=== PATIENT | female | born 1990 | race African-American/Black ===

== ENCOUNTER 2016-11-29 12:30 | Inpatient (IN) | payer OTHER ==
[2016-11-29] MEDS ORDERED: BUTORPHANOL TARTRATE 1 MG/ML VIAL IVPB ONE (15:47)
[2016-11-29] MEDS ORDERED: DINOPROSTONE 10 MG VAGINAL SUPPOSITORY VG ONE (15:51)
[2016-11-29] MEDS ORDERED: SODIUM PHOSPHATE/NA BIPHOS 133 ML ENEMA PR ONE (15:51)
[2016-11-29] MEDS ORDERED: DEXTROSE 5%-LACTATED RINGERS 1,000 ML IV SCH (16:00)
[2016-11-29 16:01] VITALS: BMI 24.0
--- NOTE | 2016-11-29 16:05 | HP ---
Past Medical History - Primary Care Physician PCP:: Suad Lopez - Admission Chief Complaint: 25 ys 40 weeks by sono & 40.2 weeks by dates is admitted due to SROM since 3.30pm 11/29/16. History of Present Illness: pnc at [facility] [place] at [facility] . pt has briught the chart with herself, last seen in the clinic was on Friday. wt gain 35 lbs course uneventful. work Up: O neg, Rhogam taken on 09/16/16. Hbsag neg, Rpr nr, Measles & Varicella immune , Rubella not noted, PPD not noted 1Hr Gtt 89, GBS neg , Gc/Ct cultures neg sonos reviewed . anatomy wnl History Source: Patient, Medical Record - Past Medical History CLINICAL PROGRAM COORDINATOR: No: Migraine Cardiovascular: No: HTN Pulmonary: No: Asthma Renal/: No: UTI ...: 1 ...Para: 0 ...LMP: 02/23/16 ... Weeks Gestation by Dates: 40.2 ...EDC by Dates: 11/27/16 ...EDC by Sono: 11/29/16 (40 weeks by sono ) Heme/Onc: No: Anemia Infectious Disease: No: HIV, STD's Psych: No: Addictions, Anxiety, Bipolar - Past Surgical History Past Surgical History: Yes: None Hx Myomectomy: No Hx Transabdominal Cerclage: No - Smoking History Smoking history: Never smoked - Alcohol/Substance Use Hx Alcohol Use: No History of Substance Use: reports: None Home Medications - Allergies Allergies/Adverse Reactions: Allergies Allergy/AdvReac Type Severity Reaction Status Date / Time No Known Allergies Allergy Verified 09/16/16 15:13 - Home Medications Home Medications: Ambulatory Orders Pnv95/Ferrous Fumarate/FA [ Vitamin Tablet] 1 each PO DAILY 09/16/16 Physical Exam - Maternity Vital Signs: Vital Signs Temperature 98.1 F 11/29/16 13:44 Pulse Rate 67 11/29/16 13:44 Respiratory Rate 20 11/29/16 13:44 Blood Pressure 114/68 11/29/16 13:44 O2 Sat by Pulse Oximetry (%) Constitutional: Yes: Well Nourished, No Distress Eyes: Yes: WNL HENT: Yes: WNL, Normocephalic Neck: Yes: WNL Cardiovascular: Yes: WNL Lungs: Clear to auscultation Breast(s): Yes: WNL - Abdominal Exam/OB Fundal Height: 40 Number of Fetuses: Single Presentation: Vertex Contractions: Yes Regularity: Irregular (3-5 min) Intensity: Mild Monitor Mode: External Heart Rate (range): 150 Heart Rate [facility] Category: I Accelerations: Uniform Decelerations: None - Vaginal Exam/OB Vaginal Bleediing: No Speculum Exam: No Dilatation (cm): FT Effacement (%): 60 % Amniotic Membrane Status: Ruptured (at 3,30 am) Nitrazine Test: Positive Amniotic Fluid: Yes: Clear Presentation: Vertex/Position (exam at 4.00pm 11/29/16) Station: -3 - Physical Exam Musculoskeletal: Yes: WNL Extremities: Yes: WNL. No: Calf Tenderness Edema: Yes Edema: LLE: Trace, RLE: Trace Integumentary: Yes: WNL Deep Tendon Reflex Grade: Normal +2 ...Motor Strength: WNL Psychiatric: Yes: WNL, Alert, Oriented - Labs Lab Results: Laboratory Tests 11/29/16 11/29/16 11/29/16 15:30 15:30 15:30 WBC 8.0 Hgb 14.2 Hct 42.5 Plt Count 198 Neutrophils % 71.4 Lymphocytes % 20.5 Monocytes % 7.6 INR 1.01 PTT (Actin FS) 32.9 Sodium 139 Potassium 4.1 Chloride 104 Carbon Dioxide 24 BUN 6 L Creatinine 0.5 L Random Glucose 61 L Blood Type 11/29/16 15:30 WBC Hgb Hct Plt Count Neutrophils % Lymphocytes % Monocytes % INR PTT (Actin FS) Sodium Potassium Chloride Carbon Dioxide BUN Creatinine Random Glucose Blood Type O NEGATIVE Problem List - Problems (1) 40 weeks gestation of Code(s): Z3A.40 - 40 WEEKS GESTATION OF (2) SROM (spontaneous rupture of membranes) Code(s): [id number] - (3) with care elsewhere Code(s): Z34.90 - ENCNTR FOR SUPRVSN OF NORMAL , UNSP, UNSP TRIMESTER Qualifiers: Trimester: unspecified trimester Qualified Code(s): Z34.90 - Encounter for supervision of normal , unspecified, unspecified trimester Assessment/Plan 25 yrs 40 weeks by sono srom , GBS neg Plan Trial vag, delivery 6.55pm cervidil was inserted
[2016-11-29 16:45] LABS: BASOPHIL 0.3 % (0-2.0); EOSINOPHIL 0.2 % (0-4.5); MCH 31.2 pg (25.7-33.7); MCHC 33.4 g/dl (32.0-36.0); MEAN CELL VOLUME 93.5 fl (80-96); MEAN PLT VOLUME 9.8 fl (7.5-11.1); NEUTROPHILS 71.4 % (42.8-82.8); PLATELET COUNT 198 K/MM3 (134-434); RDW 13.1 % (11.6-15.6)
[2016-11-29 17:02] LABS: CALCIUM 9.1 mg/dL (8.5-10.1); COCKROFT - GAULT 175.423; CREATININE 0.5 mg/dL (0.55-1.02)
[2016-11-29 17:23] LABS: INR 1.01 (0.82-1.09); PROTHROMBIN TIME (PATIENT) 11.1 SEC (9.98-11.88)
[2016-11-29 17:26] LABS: ACTIVATED PTT 32.9 SECONDS (26.9-34.4)
[2016-11-29] MEDS ORDERED: OXYTOCIN 15 UNITS/ LR 250 ML 250 ML IVPB SCH (23:45)
--- NOTE | 2016-11-29 23:47 | PN ---
Progress Note, Labor Vaginal Exam #1 Labor Exam Date: 11/29/16 Labor Exam Time: 23:25 Heart Rate (range): 130-140 Dilatation: 1 Effacement (%): 60 Amniotic Membrane Status: Ruptured Presentation: Vertex/Position Station: -3 (-3/-2) Remarks: cervidil fell out. plan fleets enema, shower pitocin augmentation Selected Entries 11/29/16 23:00 Temperature Oral Source Pulse Rate 84 Blood Pressure 126/63 Vaginal Exam #2 Labor Exam Date: 11/30/16 Labor Exam Time: 05:30 Heart Rate (range): 140-150 Dilatation: 3cm Effacement (%): 80 Amniotic Membrane Status: Ruptured Presentation: Vertex/Position (caput) Station: 0 Remarks: uc irregular fhr cat-1 . 1.30 am stadol received 3.30 am pitocin started pt requests for epidural Selected Entries 11/30/16 11/30/16 02:00 03:00 Temperature 98.1 F Pulse Rate 75 Blood Pressure 100/58 114/57 Vaginal Exam #3 Labor Exam Date: 11/30/16 Labor Exam Time: 09:00 Heart Rate (range): 140 Dilatation: 4-5 Effacement (%): 80 Amniotic Membrane Status: Ruptured Presentation: Vertex/Position (caput) Station: 0 Remarks: fhr cat-2, sometimes cat-1 . variable decel on & off pt placed in Rt lateral position ., O2 by mask. Uc 2-4 min Selected Entries 11/30/16 11/30/16 07:45 08:00 Temperature 98.1 F Pulse Rate 90 Blood Pressure 115/70 Vaginal Exam #4 Labor Exam Date: 11/30/16 Labor Exam Time: 11:20 Heart Rate (range): 140-150 Dilatation: 5-6 Effacement (%): 80 Amniotic Membrane Status: Ruptured Presentation: Vertex/Position (caput) Station: 0 Remarks: fhr cat-1, sometimes cat2 ( variable decel ) UC1-3 min 10.00am Ampicillin 2gm prophylaxis started due to srom>18hrs Selected Entries 11/30/16 11:15 Pulse Rate 98 H Blood Pressure 117/71 Vaginal Exam #5 Labor Exam Date: 11/30/16 Labor Exam Time: 13:20 Heart Rate (range): 140-150 Dilatation: 6-7 Effacement (%): 80 Amniotic Membrane Status: Ruptured Presentation: Vertex/Position Station: 0 (0/+1 caput) Remarks: fhr cat-1 uc q1-[address] Iv Ampicillin prophylaxis Selected Entries 11/30/16 11/30/16 12:00 13:15 Temperature 97.3 F L Pulse Rate 98 H Blood Pressure 127/81 Vaginal Exam #6 Labor Exam Date: 11/30/16 Labor Exam Time: 15:30 Heart Rate (range): 160-170 Dilatation: 6 Effacement (%): 80 Amniotic Membrane Status: Ruptured Presentation: Vertex/Position Station: 0 (large caput, cx edematous) Remarks: fhr cat-2 uc dysfunctional. pt received 2doses of iv Ampicillin IMP : failure to dilate, prolonged SROM , persistent OP position Plan stop trial of labor . delivery by primary c/section
[2016-11-30] MEDS ORDERED: DEXTROSE 5%-LACTATED RINGERS 1,000 ML IV ONE
[2016-11-30] MEDS ORDERED: ELECTROLYTE-148 SOLN 500 ML IV ONE ×2 (06:00→06:04)
[2016-11-30] MEDS ORDERED: FENTANYL/BUPIVACAINE/NS/PF - PCEA - 50 ML DISP.SYRIN EP SCH (06:45)
[2016-11-30] MEDS ORDERED: TUBERCULIN PPD 5 TU/0.1ML SYRINGE (IN PATIENT USE ONLY) ID ONE (08:30)
[2016-11-30] MEDS ORDERED: AMPICILLIN - 2 GM in SODIUM CHLORIDE 100 ML IVPB ONE (10:00)
[2016-11-30] MEDS ORDERED: AMPICILLIN - 1 GM in SODIUM CHLORIDE 100 ML IVPB SCH (14:00)
[2016-11-30] MEDS ORDERED: CITRIC ACID/SODIUM CITRATE 30 ML UNIT-DOSE CUP PO ONE (15:51)
[2016-11-30] MEDS ORDERED: ONDANSETRON 4 MG/2 ML VIAL IVPB PRN (16:05)
[2016-11-30] MEDS: ELECTROLYTE-148 SOLN 1,000 ML IV SCH (16:25)
[2016-11-30 17:20] LABS: ARTERIAL BLD GAS O2 SATURATION 7.5 % (90-98.9); ARTERIAL BLOOD GAS BASE EXCESS -3.8 meq/l (-2-2); ARTERIAL BLOOD GAS HCO3 26.2 meq/L (22-26); ARTERIAL BLOOD GAS PO2 10.5 mmHg (80-100); PT. ON O2? NO
[2016-11-30 17:21] LABS: ARTERIAL BLOOD GAS pH 7.22 (7.35-7.45)
[2016-11-30 17:22] LABS: ARTERIAL BLD GAS O2 SATURATION 64.2 % (90-98.9); ARTERIAL BLOOD GAS BASE EXCESS -3.2 meq/l (-2-2); ARTERIAL BLOOD GAS HCO3 21.9 meq/L (22-26)
[2016-11-30 17:24] LABS: ARTERIAL BLOOD GAS pH 7.34 (7.35-7.45); PT. ON O2? NO
[2016-11-30] MEDS ORDERED: METHYLERGONOVINE MALEATE 0.2 MG/1 ML AMP IM PRN (17:36)
--- NOTE | 2016-11-30 17:36 | OP ---
Operative Note - Note: Operative Date: 11/30/16 Pre-Operative Diagnosis: 40.1 weeks , failure to progress, prolonged SROM, persistent Op position Operation: primary LFTC/Section Findings: 16.42 hr baby Girl, LOP position, 8/9, wt 6'1", Dr Owen ornamenter present in the OR both tubes & ovaries normal Surgeon: Suad Lopez Lens Shaper Grinder: Harsha Maurice Anesthesiologist/MACHINE CLERICAL VERIFIER: Gary Venegas Anesthesia: Epidural Specimens Removed: placenta. cord blood gas. cord blood. uterine culture Estimated Blood Loss (mls): 500 Drains, Volume Out (mls): 400 Fluid Volume Replaced (mls): 800 (iv ancef) Operative Report Dictated: Yes
[2016-11-30] MEDS ORDERED: D5W-LR W/ 20 UNITS OXYTOCIN 1,000 ML IV SCH (17:45)
[2016-11-30] MEDS ORDERED: morphine SULFATE/Preservative Free 0.5 MG/ML (1cc Syringe) EP ONE (18:00)
--- NOTE | 2016-11-30 18:03 | PN ---
Delivery - Delivery Section: Primary, Low Flap Transverse (indication : 40.1 weeks, failure to progress in labor, prolonged SROM, persistent OP position) Type of Anesthesia: Epidural Episiotomy/Laceration: None EBL (cc): 500 (wild output 400 ml rigoberto color ) Delivery, Single - Stages of Labor Date 1st Stage Initiatied: 11/30/16 Time 1st Stage Initiated: 03:00 Date of Delivery: 11/30/16 Time of Delivery: 16:52 Time Placenta Delivered: 16:55 Placenta: Yes: Manual Removal - Condition of Seed Production Field Supervisor/Insulation Installer Present: Yes Name: Groening,Catie Gender: Female Weight: 6 lb 1 oz Position: Left, OP Total Hours ROM (Hrs/Mins): 25h 22min. - 1 Minute Total Score: 8 5 Minutes Total Score: 9 - Feeding Plan Initial Plan: Elected not to breastfeed exclusively throughout hospitalization Remarks - Remarks Remarks: 25 yrs 40.1 weeks admitted for srom on 11/29/16 pnc at [facility] . cervidil insertion 11/29/16 Pitocin augmentation 11/30/16 stadol followed by epidural labor analgesia IV Ampicillin x 2doses given due to prologed SROM, Intraop IV ancef was given FTP in labor upto 6cm. Intraop course unevebtful O Neg, screen drawn
[2016-11-30] MEDS: IBUPROFEN 800 MG/8 ML IJ IVPB PRN (21:24)
--- NOTE | 2016-11-30 22:49 | OP ---
DATE OF OPERATION: 11/30/2016 PREOPERATIVE DIAGNOSIS: 40.1 weeks , failure to progress in labor, prolonged, spontaneous rupture of membranes and persistent occiput posterior position. OPERATION: Primary low flap transverse section. SURGEON: Suad Lopez MD UM RN: CHEL Holman ANESTHESIOLOGIST: Gary Venegas MD ANESTHESIA: Epidural. FINDINGS: This is a 25-year-old 1, para 0 and she was admitted for ruptured membranes on November 29, 2016. Cervidil was placed for induction and it fell off after 6 hours and then she was placed on Pitocin. The patient dilated only up to 6 cm. Head was getting edematous, large caput in the posterior position and the descent was not more than 0 to +1 station. PROCEDURE: The patient is taken to the operating room table and epidural anesthesia was reinforced. Abdomen was shaved and prepped. Newton catheter was already in situ. Then, she was in supine position. Abdomen was painted and draped in usual manner. Pfannenstiel incision was made. The skin and subcutaneous tissue anterior rectus sheath was incised transversely. Bleeding points were clamped and cauterized. The rectus muscle was from the rectus sheath. Parietal peritoneum was opened vertically. The bladder peritoneum was incised transversely. The lower uterine segment was incised transversely. There was very minimal amniotic fluid noted and the baby was delivered from LOP position at 4:42 p.m. Apgars were 8 and 9 and cord was clamped and cut. Cord blood was collected. Cord blood also was collected for the cord blood gas. Baby's weight was [address] Mohr, the program writer, was present in the room and placenta was completely removed with the membrane. Before that, uterine culture was taken and sent for microbiology testing. Then the uterine cavity was cleaned completely. The uterine incision was closed in 2 layers, first layer was closed with Biosyn 0 suture continuous locking sutures. The second layer was closed with Biosyn 0 vertical mattress sutures. Hemostasis was verified and then the bladder peritoneum also was closed with Biosyn 0 suture. Hemostasis was checked. Both tubes and ovaries were normal and the sponge, instrument and needle counts were correct. Suction irrigation was done and then closure of the abdomen was done. Parietal peritoneum was closed with Vicryl 0 suture. Muscles were approximated together with Vicryl 0 interrupted sutures. Anterior rectus sheath was closed with 0 Vicryl continuous sutures. Hemostasis was verified in subcutaneous tissue and then skin was approximated with ortiz. Pressure dressing was given. The clots were removed form the vagina. ESTIMATED BLOOD LOSS: 500 mL. INTRAOPERATIVE URINE OUTPUT: 400 mL. INTRAOPERATIVE INTRAVENOUS FLUIDS: 800 mL. ANTIBIOTICS: IV Ancef prior to the incision. DISPOSITION: She tolerated the procedure well and was transferred to the recovery room in stable condition. Kameron [id number]
[2016-12-01] MEDS: CEFAZOLIN (PRE-DOCKED) 50 ML IVPB SCH ×4 (00:26→23:32)
[2016-12-01] MEDS: IBUPROFEN 800 MG/8 ML IJ IVPB PRN (05:48)
[2016-12-01 08:50] LABS: BASOPHIL 0.2 % (0-2.0); EOSINOPHIL 0.3 % (0-4.5); MCH 31.3 pg (25.7-33.7); MCHC 33.1 g/dl (32.0-36.0); MEAN CELL VOLUME 94.5 fl (80-96); MEAN PLT VOLUME 9.1 fl (7.5-11.1); PLATELET COUNT 161 K/MM3 (134-434); RDW 13.5 % (11.6-15.6); WHITE BLOOD COUNT 13.4 K/mm3 (4.0-10.0)
[2016-12-01] MEDS: PRENATAL VITAMINS W/ FOLIC ACID TABLET (FP) PO SCH (09:18)
[2016-12-01] MEDS ORDERED: oxyCODONE HCL 5 MG TABLET PO PRN (10:00)
--- NOTE | 2016-12-01 10:07 | PN ---
Post Progress Note - Subjective Subjective: pt has no complains, not oob yet Post Day: 1 Type of Delivery: Primary C/S Vital Signs: Vital Signs Temperature 97.6 F 12/01/16 09:39 Pulse Rate 80 12/01/16 09:39 Respiratory Rate 18 12/01/16 09:39 Blood Pressure 112/53 12/01/16 09:39 O2 Sat by Pulse Oximetry (%) 100 11/30/16 16:30 Breast Exam: Yes: Soft, Other (plans to BF ). No: Engorged Uterus: Yes: Fundus Firm, Fundus below umbilicus, Non-tender Incision: Yes: Dressing dry and intact, [place] intact. No: Redness, Oozing Abdomen/GI: Yes: Abdomen soft (bs active ), Tender, Tolerating PO (clear liqiuds ). No: Abdominal Distention, Passing flatus Lochia: Yes: Rubra Lochia, amount: Moderate Extremities: Yes: Calves non-tender Perineum: Yes: Intact Activity: Other (not oob yet ) - Labs Labs: CBC WBC 13.4 K/mm3 (4.0-10.0) H D 12/01/16 07:30 RBC 3.85 M/mm3 (3.60-5.2) 12/01/16 07:30 Hgb 12.0 GM/dL (10.7-15.3) D 12/01/16 07:30 Hct 36.4 % (32.4-45.2) 12/01/16 07:30 MCV 94.5 fl (80-96) 12/01/16 07:30 MCHC 33.1 g/dl (32.0-36.0) 12/01/16 07:30 RDW 13.5 % (11.6-15.6) 12/01/16 07:30 Plt Count 161 K/MM3 (134-434) 12/01/16 07:30 MPV 9.1 fl (7.5-11.1) 12/01/16 07:30 Neutrophils % 83.0 % (42.8-82.8) H 12/01/16 07:30 Lymphocytes % 10.5 % (8-40) D 12/01/16 07:30 Monocytes % 6.0 % (3.8-10.2) 12/01/16 07:30 Eosinophils % 0.3 % (0-4.5) 12/01/16 07:30 Basophils % 0.2 % (0-2.0) 12/01/16 07:30 Other Findings, Remarks: venkatesh wild out put adequate Problem List - Problems (1) 40 weeks gestation of Code(s): Z3A.40 - 40 WEEKS GESTATION OF (2) SROM (spontaneous rupture of membranes) Code(s): [id number] - (3) with care elsewhere Code(s): Z34.90 - ENCNTR FOR SUPRVSN OF NORMAL , UNSP, UNSP TRIMESTER Qualifiers: Trimester: unspecified trimester Qualified Code(s): Z34.90 - Encounter for supervision of normal , unspecified, unspecified trimester Assessment/Plan stable plan ct po care
[2016-12-01] MEDS: IBUPROFEN 600 MG TABLET (FP) PO PRN ×2 (13:56→17:51)
[2016-12-01] MEDS: SIMETHICONE 80 MG TAB.CHEW (FP) PO PRN ×2 (13:56→17:51)
[2016-12-01] MEDS: ACETAMINOPHEN 325 MG TABLET (FP) PO PRN ×2 (13:56→17:52)
--- NOTE | 2016-12-01 15:11 | PN ---
Progress Note (short form) - Note Progress Note: ANESTHESIOLOGY POST-OP CHECK 25F s/p under epidural anesthesia POD #1. No acute complaints. Ambulating, tolerating PO. Denies N/V, headache, backache, numbness, weakness. Pain 6/10 and tolerable. Vital Signs Temperature 97.8 F 12/01/16 13:37 Pulse Rate 91 H 12/01/16 13:37 Respiratory Rate 20 12/01/16 13:37 Blood Pressure 109/69 12/01/16 13:37 O2 Sat by Pulse Oximetry (%) 100 11/30/16 16:30 Active Medications Acetaminophen (Tylenol -) 650 mg PO Q4H PRN PRN Reason: FEVER OR PAIN Last Admin: 12/01/16 13:56 Dose: 650 mg Bisacodyl (Dulcolax Suppository -) 10 mg RC PRN PRN PRN Reason: CONSTIPATION Diphenhydramine HCl (Benadryl Injection -) 25 mg IVPUSH Q4H PRN PRN Reason: Pruritis Last Admin: 11/30/16 18:20 Dose: 25 mg Ferrous Sulfate (Feosol -) 325 mg PO BID [facility] Parenteral Electrolytes (Plasma-Lyte 148 -) 1,000 mls @ 125 mls/hr IV ASDIR [facility] Last Admin: 11/30/16 16:25 Dose: 125 mls/hr Cefazolin Sodium (Ancef 1gm Ivpb (Pre-Docked)) 50 mls @ 100 mls/hr IVPB Q8H [facility] Stop: 12/02/16 00:00 Last Admin: 12/01/16 07:20 Dose: 100 mls/hr Dextrose/Lactated Ringer's (Pitocin 20 Units In D5-Lr -) 1,000 mls @ 125 mls/ hr IV ASDIR [facility] Last Admin: 12/01/16 11:55 Dose: 125 mls/hr Ibuprofen (Motrin -) 600 mg PO Q4H PRN PRN Reason: PAIN Last Admin: 12/01/16 13:56 Dose: 600 mg Ibuprofen (Caldolor Injection -) 800 mg IVPB Q8H PRN PRN Reason: PAIN OR FEVER Last Admin: 12/01/16 05:48 Dose: 800 mg Methylergonovine Maleate (Methergine Injection -) 0.2 mg IM Q4H PRN PRN Reason: Excessive Bleeding (L&D) Oxycodone HCl (Roxicodone -) 5 mg PO Q4H PRN PRN Reason: PAIN LEVEL 1-5 Oxycodone HCl (Roxicodone -) 10 mg PO Q4H PRN PRN Reason: PAIN LEVEL 6-10 Multivit/Folic Acid/Iron ( Vitamins (Sjr) -) 1 tab PO DAILY [place] Last Admin: 12/01/16 09:18 Dose: Not Given Senna/Docusate Sodium (Pericolace -) 2 tablet PO HS PRN PRN Reason: CONSTIPATION Simethicone (Mylicon -) 80 mg PO Q4H PRN PRN Reason: GAS Last Admin: 12/01/16 13:56 Dose: 80 mg Gen: Awake, alert Ext: No motor or sensory deficits No apparent anesthesia complications. pain controlled. Continue management as per primary team.
[2016-12-01] MEDS ORDERED: BISACODYL 10 MG SUPP.RECT RC PRN (17:36)
[2016-12-01] MEDS: FERROUS SO4 325 MG TABLET (FP) PO SCH (22:36)
[2016-12-02] MEDS: SIMETHICONE 80 MG TAB.CHEW (FP) PO PRN ×4 (05:25→21:23)
[2016-12-02] MEDS: IBUPROFEN 600 MG TABLET (FP) PO PRN (05:25)
[2016-12-02] MEDS: ACETAMINOPHEN 325 MG TABLET (FP) PO PRN ×4 (05:26→21:25)
--- NOTE | 2016-12-02 07:59 | PN ---
Post Progress Note - Subjective Subjective: c/o pain 7-8 voiding without difficulty Post Day: 2 Type of Delivery: Primary C/S Vital Signs: Vital Signs Temperature 97.6 F 12/02/16 07:41 Pulse Rate 79 12/02/16 07:41 Respiratory Rate 18 12/02/16 07:41 Blood Pressure 110/69 12/02/16 07:41 O2 Sat by Pulse Oximetry (%) 100 11/30/16 16:30 Breast Exam: Yes: Soft, Other (BF ). No: Engorged Uterus: Yes: Fundus Firm, Fundus below umbilicus, Non-tender Incision: Yes: [place] intact. No: Redness, Oozing Abdomen/GI: Yes: Abdomen soft, Tender, Passing flatus (bm not done ), Tolerating PO (diet ). No: Abdominal Distention Lochia: Yes: Rubra Lochia, amount: Moderate Extremities: Yes: Calves non-tender Perineum: Yes: Intact Activity: Ambulating - Labs Labs: CBC WBC 13.4 K/mm3 (4.0-10.0) H D 12/01/16 07:30 RBC 3.85 M/mm3 (3.60-5.2) 12/01/16 07:30 Hgb 12.0 GM/dL (10.7-15.3) D 12/01/16 07:30 Hct 36.4 % (32.4-45.2) 12/01/16 07:30 MCV 94.5 fl (80-96) 12/01/16 07:30 MCHC 33.1 g/dl (32.0-36.0) 12/01/16 07:30 RDW 13.5 % (11.6-15.6) 12/01/16 07:30 Plt Count 161 K/MM3 (134-434) 12/01/16 07:30 MPV 9.1 fl (7.5-11.1) 12/01/16 07:30 Neutrophils % 83.0 % (42.8-82.8) H 12/01/16 07:30 Lymphocytes % 10.5 % (8-40) D 12/01/16 07:30 Monocytes % 6.0 % (3.8-10.2) 12/01/16 07:30 Eosinophils % 0.3 % (0-4.5) 12/01/16 07:30 Basophils % 0.2 % (0-2.0) 12/01/16 07:30 Problem List - Problems (1) 40 weeks gestation of Code(s): Z3A.40 - 40 WEEKS GESTATION OF (2) SROM (spontaneous rupture of membranes) Code(s): [id number] - (3) with care elsewhere Code(s): Z34.90 - ENCNTR FOR SUPRVSN OF NORMAL , UNSP, UNSP TRIMESTER Qualifiers: Trimester: unspecified trimester Qualified Code(s): Z34.90 - Encounter for supervision of normal , unspecified, unspecified trimester Assessment/Plan stable. plan ct Po care
[2016-12-02] MEDS: FERROUS SO4 325 MG TABLET (FP) PO SCH ×2 (09:18→21:24)
[2016-12-02] MEDS: oxyCODONE HCL 5 MG TABLET PO PRN ×3 (09:18→21:24)
[2016-12-02] MEDS: PRENATAL VITAMINS W/ FOLIC ACID TABLET (FP) PO SCH (09:18)
[2016-12-03] MEDS: IBUPROFEN 600 MG TABLET (FP) PO PRN ×3 (01:29→17:59)
[2016-12-03] MEDS: SENNOSIDES/DOCUSATE COMBO (SENNA PLUS) TABLET (UD) PO PRN ×2 (01:29→21:05)
[2016-12-03] MEDS: SIMETHICONE 80 MG TAB.CHEW (FP) PO PRN ×3 (01:29→17:59)
[2016-12-03] MEDS: oxyCODONE HCL 5 MG TABLET PO PRN ×3 (01:30→18:00)
--- NOTE | 2016-12-03 06:13 | PN ---
Post Progress Note - Subjective Subjective: doing well, minimal pain Type of Delivery: Primary C/S Vital Signs: Vital Signs Temperature 99.1 F 12/02/16 22:00 Pulse Rate 80 12/02/16 22:00 Respiratory Rate 20 12/02/16 22:00 Blood Pressure 117/74 12/02/16 22:00 O2 Sat by Pulse Oximetry (%) 100 11/30/16 16:30 Breast Exam: Yes: Soft Uterus: Yes: Fundus Firm Incision: Yes: [place] intact Abdomen/GI: Yes: Abdomen soft Lochia: Yes: Rubra Lochia, amount: Small Extremities: Yes: Calves non-tender Perineum: Yes: Intact Activity: Ambulating - Labs Labs: CBC WBC 13.4 K/mm3 (4.0-10.0) H D 12/01/16 07:30 RBC 3.85 M/mm3 (3.60-5.2) 12/01/16 07:30 Hgb 12.0 GM/dL (10.7-15.3) D 12/01/16 07:30 Hct 36.4 % (32.4-45.2) 12/01/16 07:30 MCV 94.5 fl (80-96) 12/01/16 07:30 MCHC 33.1 g/dl (32.0-36.0) 12/01/16 07:30 RDW 13.5 % (11.6-15.6) 12/01/16 07:30 Plt Count 161 K/MM3 (134-434) 12/01/16 07:30 MPV 9.1 fl (7.5-11.1) 12/01/16 07:30 Neutrophils % 83.0 % (42.8-82.8) H 12/01/16 07:30 Lymphocytes % 10.5 % (8-40) D 12/01/16 07:30 Monocytes % 6.0 % (3.8-10.2) 12/01/16 07:30 Eosinophils % 0.3 % (0-4.5) 12/01/16 07:30 Basophils % 0.2 % (0-2.0) 12/01/16 07:30 Assessment/Plan as above reg diet oob cosme meds reg diet
[2016-12-03 08:45] LABS: BASOPHIL 0.2 % (0-2.0); EOSINOPHIL 0.6 % (0-4.5); MCH 30.8 pg (25.7-33.7); MCHC 32.7 g/dl (32.0-36.0); MEAN CELL VOLUME 94.1 fl (80-96); MEAN PLT VOLUME 8.9 fl (7.5-11.1); NEUTROPHILS 68.1 % (42.8-82.8); PLATELET COUNT 205 K/MM3 (134-434); RDW 13.2 % (11.6-15.6); WHITE BLOOD COUNT 7.9 K/mm3 (4.0-10.0)
[2016-12-03] MEDS: PRENATAL VITAMINS W/ FOLIC ACID TABLET (FP) PO SCH (09:53)
[2016-12-03] MEDS: FERROUS SO4 325 MG TABLET (FP) PO SCH ×2 (09:53→21:05)
[2016-12-03] MEDS: ELECTROLYTE-148 SOLN 1,000 ML IV SCH ×3 (10:53→19:42)
[2016-12-04] MEDS: SIMETHICONE 80 MG TAB.CHEW (FP) PO PRN ×2 (04:25→11:06)
[2016-12-04] MEDS: IBUPROFEN 600 MG TABLET (FP) PO PRN ×2 (04:25→11:06)
[2016-12-04] MEDS: ACETAMINOPHEN 325 MG TABLET (FP) PO PRN ×2 (04:25→11:07)
--- NOTE | 2016-12-04 08:14 | DS ---
Physical Exam-PROFESSOR OF JOURNALISM Vital Signs: Vital Signs Temperature 98.1 F 12/03/16 22:00 Pulse Rate 57 L 12/03/16 22:00 Respiratory Rate 18 12/03/16 22:00 Blood Pressure 119/67 12/03/16 22:00 O2 Sat by Pulse Oximetry (%) 100 11/30/16 16:30 Constitutional: Yes: Well Nourished, No Distress, Other (pain scale 3-4) Eyes: Yes: WNL HENT: Yes: WNL Neck: Yes: WNL Cardiovascular: Yes: WNL Respiratory: Yes: WNL Gastrointestinal: Yes: WNL, Normal Bowel Sounds, Soft, Other (bm done). No: Distention Renal/: Yes: WNL, Other (voiding without difficulty) ....Post : Yes: Uterus firm, Uterus non-tender, Moderate lochia rubra Breast(s): Yes: WNL (BF) Musculoskeletal: Yes: WNL Extremities: Yes: WNL. No: Calf Tenderness Edema: No Wound/Incision: Yes: Clean/Dry, Well Approximated, Steri Strips, Open to air. No: Draining, Reddened, Bleeding, Excoriated Neurological: Yes: WNL, Alert, Oriented ...Motor Strength: WNL Psychiatric: Yes: WNL Labs: CBC, BMP 12/03/16 08:00 11/29/16 15:30 Delivery - Delivery Section: Primary, Low Flap Transverse (indication : 40.1 weeks, failure to progress in labor, prolonged SROM, persistent OP position) Type of Anesthesia: Epidural Episiotomy/Laceration: None EBL (cc): 500 (wild output 400 ml rigoberto color ) Delivery, Single - Stages of Labor Date 1st Stage Initiatied: 11/30/16 Time 1st Stage Initiated: 03:00 Date of Delivery: 11/30/16 Time of Delivery: 16:52 Time Placenta Delivered: 16:55 Placenta: Yes: Manual Removal - Condition of Edger Liner/Septic Tank Setter Present: Yes Name: Groening,[place] Infant Gender: Female Weight: 6 lb 1 oz Position: Left, OP Total Hours ROM (Hrs/Mins): 25h 22min. - 1 Minute Total Score: 8 5 Minutes Total Score: 9 - [place] Feeding Plan Initial Plan: Elected not to breastfeed exclusively throughout hospitalization Remarks - Remarks Remarks: 25 yrs 40.1 weeks admitted for srom on 11/29/16 pnc at [facility] . cervidil insertion 11/29/16 Pitocin augmentation 11/30/16 stadol followed by epidural labor analgesia IV Ampicillin x 2doses given due to prologed SROM, Intraop IV ancef was given FTP in labor upto 6cm. Intraop course unevebtful O Neg, screen drawn stable. plan ct po care discharge today. Discharge Summary Reason For Visit: LABOR Current Active Problems 40 weeks gestation of (Acute) Delivery by emergency section (Acute) Failure to progress in labor, delivered, current hospitalization (Acute) with care elsewhere (Acute) SROM (spontaneous rupture of membranes) (Acute) Condition: Stable - Instructions Diet, Activity, Other Instructions: Post Instructions DIET: Continue good diet high in protein, calcium, and iron rich foods. Drink at least eight (8) glasses of water daily in addition to other fluids. Ct Regular diet MEDICATIONS: Continue vitamins and iron as previously directed. Motrin and Tylenol may be taken for minor discomfort. ACTIVITY: Mild to moderate exercise may be started in two (2) weeks. Take frequent rest periods. Resume normal activity after six (6) week check up. WOUND CARE OF OPERATIVE SITE: Continue use of perineal bottle until vaginal discharge stops. Keep area clean. Shower daily. Keep abdominal wound dry. Report any drainage or redness to physician. Tub baths, tampons and douches are not permitted for [address] Breast feeding & or Bottle feeding BREAST CARE: (For those that are not breast feeding): If engorgement occurs: Wear tight fitting bra. Take Tylenol or Motrin for pain. Apply cold packs (ice in bags to each breast ) FAMILY PLANNING: There are many control alternatives to pursue and they should be discussed at your first office visit. You may resume sexual activity after your six (6) week check up. (Remember, breast feeding is not a contraceptive) NEXT PHYSICIAN APPOINTMENT: Be certain to call for a one (1) week appointment, unless otherwise directed. for wound check [phone] for appt at [address] [place] [address] Call Clinic or got to Emergency Dept if you have any of the following: Heavy vaginal bleeding Painful urination Leg pain Unusual odor noted to vaginal bleeding High fever Red streaking noted on breast Referrals: Suad Lopez MD [Staff Physician] - Disposition: HOME - Home Medications Comprehensive Discharge Medication List: Ambulatory Orders Pnv95/Ferrous Fumarate/FA [ Vitamin Tablet] 1 each PO DAILY 09/16/16 Acetaminophen [Tylenol .Regular Strength -] 650 mg PO Q4H PRN #0 tablet Ibuprofen [Motrin -] 600 mg PO Q4H PRN #30 tablet 12/03/16 Vitamins (Sjr) - 1 tab PO DAILY tablet 12/03/16
[2016-12-04 09:23] VITALS: BP 131/84; PULSE 60; TEMP 98.7
[2016-12-04] MEDS: PRENATAL VITAMINS W/ FOLIC ACID TABLET (FP) PO SCH (09:33)
[2016-12-04] MEDS: FERROUS SO4 325 MG TABLET (FP) PO SCH (09:33)
--- NOTE | 2016-12-06 13:15 | PATH ---
Surgical Pathology Report Patient Name: ROBERTO PRETTY Med. Rec. #: [id number] /Age/Gender: 1990 (Age: 25) / F Account: [id number] Location: [facility] OBS/ORE FIELDER Taken: 11/30/2016 Received: 12/02/2016 Reported: 12/06/2016 Physicians: Suad Lopez M.D. Specimen(s) Received PLACENTA Clinical History , 40.3 gestational weeks, failure to progress and prolonged rupture of membranes C/section Final Diagnosis PLACENTA, DELIVERY: FOCALLY DISRUPTED, SMALL (<400 GM), THIRD TRIMESTER PLACENTA WITH MILD INCREASE IN PREVILLOUS, PERIVILLOUS, AND PRECHORIONIC FIBRIN DEPOSITION, THREE VESSEL UMBILICAL CORD, AND PLACENTAL MEMBRANES WITH FOCAL EARLY ACUTE CHORIOAMNIONITIS. Electronically Signed Jasper Fitzpatrick M.D. Gross Description The specimen is received fresh, labeled "placenta" and is a 257 gram, 16.0 x 18.0 x 1.8 cm placenta with attached membranes and umbilical cord. The attached membranes are swartz with focal opacities and insert marginally. The umbilical cord measures 7 cm in length and averages 1.1 cm in diameter. The cord inserts eccentrically, 3.5 cm. to the nearest margin. No true knots or strictures are identified. Cut surface of the umbilical cord reveals 3 vessels. The surface is madrigal-blue with fibrin deposition and appropriate caliber vessels. The maternal surface is red-brown with focal defects. Sectioning reveals red-brown, spongy parenchyma. No focal lesions are identified. Construction Site Manager sections are submitted in three cassettes as follows: 1- membrane rolls and umbilical cord; 2-3- full thickness sections of placenta. /12/05/2016 [facility]12/05/2016
== END 2016-12-04 12:30 | disposition home or self-care (01) | DRG 540 ==
LOC: JDEL 12:30 → JLDR 15:30 → J3W 11-30 20:53
PROVIDERS: ADMIT Obstetrics & Gynecology; ATTEND Obstetrics & Gynecology
PROC: 3E0P7GC Introduction of Other Therapeutic Substance into Female Reproductive, Via Natural or Artificial Opening (ICD-10-PCS; 2016-11-29)
PROC: 10D00Z1 Extraction of Products of Conception, Low, Open Approach (ICD-10-PCS; principal; 2016-11-30)
DX: O48.0 Post-term pregnancy (principal); O62.0 Primary inadequate contractions; O64.0XX0 Obstructed labor due to incomplete rotation of fetal head, not applicable or unspecified; Z3A.40 40 weeks gestation of pregnancy; Z37.0 Single live birth
CPT/HCPCS: 36415; 36600; 80048; 82803; 85025; 85461; 85610; 85730; 86593; 86762; 86850; 86900; 86901; 87070; 87205; 88307-TC

== ENCOUNTER 2018-07-18 08:05 | Emergency (ER) | payer OTHER ==
[2018-07-18 08:25] VITALS: BP 105/72; PULSE 117; TEMP 99; BMI 20.2
[2018-07-18] MEDS ORDERED: IBUPROFEN 100 MG/5 ML UNIT DOSE CUPS PO ONE (08:42)
[2018-07-18] MEDS ORDERED: PENICILLIN G BENZATHINE 1,200,000 UNIT/2 ML PFS IM ONE (08:42)
[2018-07-18] MEDS ORDERED: IBUPROFEN 100 MG/5 ML UNIT DOSE CUPS ONE (08:48)
[2018-07-18] MEDS ORDERED: PENICILLIN G BENZATHINE 2,400,000 UNIT/4 ML PFS ONE (08:49)
--- NOTE | 2018-07-18 08:56 | PDOC ---
History of Present Illness - General Chief Complaint: Sore Throat Stated Complaint: SORE THROAT Time Seen by Provider: 07/18/18 08:31 History Source: Patient Exam Limitations: No Limitations - History of Present Illness Initial Comments: 07/18/18 08:25 Patient is here with complaints of worsening sore throat pain 2 days. States has had intermittent fevers and chills, runny nose with no cough. States niece was diagnosed with strep throat 3 days ago. Timing/Duration: unsure Severity: mild, moderate Modifying Factors: improves with: medication Associated Symptoms: reports: fever/chills, malaise. denies: headaches Past History - Travel Traveled outside of the country in the last 30 days: No Close contact w/someone who was outside of country & ill: No - Past Medical History Allergies/Adverse Reactions: Allergies Allergy/AdvReac Type Severity Reaction Status Date / Time No Known Allergies Allergy Verified 07/18/18 08:22 Home Medications: Ambulatory Orders NK [No Known Home Medication] 07/18/18 Asthma: No Cancer: No Cardiac Disorders: No COPD: No Diabetes: No HTN: No Seizures: No Thyroid Disease: No - Suicide/Smoking/Psychosocial Hx Smoking History: Never smoked Have you smoked in the past 12 months: No Hx Alcohol Use: No Drug/Substance Use Hx: No Hx Substance Use Treatment: No Review of Systems - Review of Systems Able to Perform ROS?: Yes Is the patient limited Nigerian proficient: Yes Constitutional: Yes: Symptoms Reported, See HPI, Fever, Loss of Appetite, Malaise HEENTM: Yes: Symptoms Reported, See HPI Respiratory: Yes: Symptoms reported, See HPI, Cough. No: Wheezing ABD/GI: Yes: See HPI. No: Symptoms Reported Integumentary: No: Symptoms Reported All Other Systems: Reviewed and Negative *Physical Exam - Vital Signs Last Vital Signs Temp Pulse Resp BP Pulse Ox 99 F 117 H 16 105/72 99 07/18/18 08:15 07/18/18 08:15 07/18/18 08:15 07/18/18 08:15 07/18/18 08:15 - Physical Exam General Appearance: Yes: Nourished, Appropriately Dressed, Apparent Distress, Mild Distress HEENT: positive: MANE, TMs Normal, Pharyngeal Erythema, Tonsillar Exudate, Tonsillar Erythema, Rhinorrhea. negative: Normal ENT Inspection, Pharynx Normal Neck: positive: Tender, Trachea midline, Supple, Lymphadenopathy (R), Lymphadenopathy (L) Respiratory/Chest: positive: Lungs Clear, Normal Breath Sounds Gastrointestinal/Abdominal: positive: Soft Musculoskeletal: positive: Normal Inspection Extremity: positive: Normal Capillary Refill, Normal Inspection Integumentary: positive: Dry, Warm, Pale Neurologic: positive: hand quilter II-XII NML intact, Fully Oriented, Alert, Normal Mood/ Affect Moderate Sedation - Procedure Monitoring Vital Signs: Procedure Monitoring Vital Signs Temperature 99 F 07/18/18 08:15 Pulse Rate 117 H 07/18/18 08:15 Respiratory Rate 16 07/18/18 08:15 Blood Pressure 105/72 07/18/18 08:15 O2 Sat by Pulse Oximetry (%) 99 07/18/18 08:15 *DC/Admit/Observation/Transfer Diagnosis at time of Disposition: Pharyngitis Qualifiers: Pharyngitis/tonsillitis etiology: unspecified etiology Qualified Code(s): J02.9 - Acute pharyngitis, unspecified - Discharge Dispostion Disposition: HOME Condition at time of disposition: Stable Decision to Admit order: No - Referrals Referrals: Francesco Elias MD [Primary Care Provider] - - Patient Instructions Printed Discharge Instructions: DI for Pharyngitis/Tonsillopharyngitis -- Adult Additional Instructions: Rest, drink lots of fluids: Teas, water, soups Eat cold things: Ice cream, ice pops, ice chips Saltwater gargles Steamy showers/seem to face break up mucus Avoid contact with others until fevers and pain resolved Lots of handwashing and good hygiene, this is contagious You have been treated with Bicillin LA 1.2 million units injection which is a one-time treatment for strep pharyngitis. You will not need to take any further antibiotics. Tylenol or Motrin for fever and pain Followup with private physician in one to 2 days as needed if not improving Return to emergency department for worsened symptoms, fevers, dehydration - Post Discharge Activity Forms/Work/School Notes: Back to Work
== END 2018-07-18 09:31 | disposition home or self-care (01) ==
LOC: JERFT 08:05
DX: J02.9 Acute pharyngitis, unspecified (principal)
CPT/HCPCS: 96372; 99281-25

== ENCOUNTER 2019-01-06 14:08 | Emergency (ER) | payer OTHER | END 2019-01-06 16:35 | LOC: JERFT 14:08 → JER 16:35 ==

== ENCOUNTER 2019-02-24 08:52 | Emergency (ER) | payer OTHER ==
[2019-02-24 09:03] VITALS: BP 101/65; PULSE 86; TEMP 98.7; BMI 19.7
--- NOTE | 2019-02-24 09:18 | PDOC ---
History of Present Illness - General Chief Complaint: Cold Symptoms Stated Complaint: COLD SORE UPPER LIP Time Seen by Provider: 02/24/19 09:09 History Source: Patient Exam Limitations: Clinical Condition - History of Present Illness Initial Comments: 02/24/19 09:21 Patient with history of course of present with complaint of one day history of cold sore to left side of upper lip and nasal congestion. Patient reported using home Abreva last night but she ran out. Denies fever, chills, cough, sore throat, nausea or vomiting. Denies any other symptoms Timing/Duration: 24 hours Past History - Past Medical History Allergies/Adverse Reactions: Allergies Allergy/AdvReac Type Severity Reaction Status Date / Time No Known Allergies Allergy Verified 07/18/18 08:22 Home Medications: Ambulatory Orders Docosanol 1 applic TP BID PRN #1 tube 02/24/19 Valacyclovir HCl [Valtrex -] 500 mg PO BID 5 Days #10 tablet 02/24/19 Asthma: No Cancer: No Cardiac Disorders: No COPD: No Diabetes: No HTN: No Seizures: No Thyroid Disease: No - Suicide/Smoking/Psychosocial Hx Smoking History: Never smoked Have you smoked in the past 12 months: No Information on smoking cessation initiated: No Hx Alcohol Use: No Drug/Substance Use Hx: No Hx Substance Use Treatment: No Review of Systems - Review of Systems Able to Perform ROS?: Yes Is the patient limited Maori proficient: No Constitutional: No: Fever, Malaise, Weakness HEENTM: Yes: Symptoms Reported, See HPI, Nose Congestion, Other (cold sore to upper lip). No: Eye Pain, Blurred Vision, Tearing, Recent change in vision, Double Vision, Cataracts, Ear Pain, Ocular Prothesis, Ear Discharge, Nose Pain, Tinnitus, Nose Bleeding, Hearing Loss, Throat Pain, Throat Swelling, Mouth Pain , Dental Problems, Difficulty Swallowing, Mouth Swelling Respiratory: No: Symptoms reported, See HPI, Cough, Orthopnea, Shortness of Breath, SOB with Exertion, SOB at Rest, Stridor, Wheezing, Productive cough, Hemoptysis, Other Cardiac (ROS): No: Symptoms Reported, See HPI, Chest Pain, Edema, Irregular Heart Rate, Lightheadedness, Palpitations, Syncope, Chest Tightness, Other ABD/GI: No: Nausea, Vomiting All Other Systems: Reviewed and Negative *Physical Exam - Vital Signs Last Vital Signs Temp Pulse Resp BP Pulse Ox 98.7 F 86 18 101/65 100 02/24/19 09:00 02/24/19 09:00 02/24/19 09:00 02/24/19 09:00 02/24/19 09:00 - Physical Exam General Appearance: Yes: Nourished, Appropriately Dressed. No: Apparent Distress HEENT: positive: EOMI, MANE, Normal ENT Inspection, Normal Voice, TMs Normal, Pharynx Normal Neck: positive: Trachea midline, Supple Respiratory/Chest: positive: Lungs Clear, Normal Breath Sounds. negative: Respiratory Distress, Accessory Muscle Use Cardiovascular: positive: Regular Rhythm, Regular Rate. negative: Murmur Musculoskeletal: positive: Normal Inspection Extremity: positive: Normal Capillary Refill, Normal Inspection Integumentary: positive: Normal Color, Erythema (left upper lip), Other (1mm herpes labialis to left upper lip w/o open wounds) Neurologic: positive: Fully Oriented, Alert, Normal Response, Motor Strength 5/5 Medical Decision Making - Medical Decision Making 02/24/19 09:22 Patient with history of course of present with complaint of one day history of cold sore to left side of upper lip and nasal congestion. Patient reported using home Abreva last night but she ran out. Denies fever, chills, cough, sore throat, nausea or vomiting. Denies any other symptoms Exam significant for 1 mm herpes labialis to left upper lip with no open wound otherwise normal exam. Patient is stable for discharge on Valtrex twice a day for 5 days and Abreva with PCP follow-up as needed *DC/Admit/Observation/Transfer Diagnosis at time of Disposition: Cold sore, Nasal congestion - Discharge Dispostion Disposition: HOME Condition at time of disposition: Stable Decision to Admit order: No - Prescriptions Prescriptions: Docosanol 1 applic TP BID PRN #1 tube PRN Reason: cold sore Valacyclovir HCl [Valtrex -] 500 mg PO BID 5 Days #10 tablet - Referrals - Patient Instructions Printed Discharge Instructions: Cold Sores, DI for Cold Sores Additional Instructions: Take prescribed medications as prescribed. Continue with home abreva with this medication - Post Discharge Activity Forms/Work/School Notes: Back to Work
== END 2019-02-24 09:25 | disposition home or self-care (01) ==
LOC: JERFT 08:52
DX: B00.1 Herpesviral vesicular dermatitis (principal); R09.81 Nasal congestion
CPT/HCPCS: 99281-25

== ENCOUNTER 2019-03-12 10:03 | Emergency (ER) | payer OTHER ==
[2019-03-12 10:09] VITALS: BP 102/63; PULSE 77; TEMP 98.5; BMI 19.7
--- NOTE | 2019-03-12 11:04 | PDOC ---
History of Present Illness - General Chief Complaint: Pain Stated Complaint: ABD. PAIN Time Seen by Provider: 03/12/19 10:13 History Source: Patient Exam Limitations: Clinical Condition - History of Present Illness Initial Comments: 03/12/19 11:04 Patient with no significant past medical history LMP January 31 present with complaint of three-day history of intermittent abdominal cramping pain. Patient reported taking Plan B pill 2 months ago after unprotective sex. Patient denies vaginal bleeding, discharge, urinary frequency or dysuria, fever or chills. Denies abdominal pain now. Patient did not do any home test. Denies any other symptoms Timing/Duration: other (3 days) Past History - Past Medical History Allergies/Adverse Reactions: Allergies Allergy/AdvReac Type Severity Reaction Status Date / Time No Known Allergies Allergy Verified 03/12/19 10:08 Home Medications: Ambulatory Orders Docosanol 1 applic TP BID PRN #1 tube 02/24/19 Valacyclovir HCl [Valtrex -] 500 mg PO BID 5 Days #10 tablet 02/24/19 Asthma: No Cancer: No Cardiac Disorders: No COPD: No Diabetes: No HTN: No Seizures: No Thyroid Disease: No - Suicide/Smoking/Psychosocial Hx Smoking History: Never smoked Have you smoked in the past 12 months: No Hx Alcohol Use: Yes (OCCASIONALLY) Drug/Substance Use Hx: No Hx Substance Use Treatment: No Review of Systems - Review of Systems Able to Perform ROS?: Yes Is the patient limited Hungarian proficient: No Constitutional: No: Chills, Fever, Malaise HEENTM: No: Symptoms Reported Respiratory: No: Symptoms reported Cardiac (ROS): No: Symptoms Reported ABD/GI: Yes: Symptoms Reported, See HPI, Abdominal cramping (intermittent lower abdominal). No: Abdominal Distended, Blood Streaked Bowels, Constipated, Diarrhea, Difficulty Swallowing, Nausea, Vomiting : No: Symptoms Reported, Burning, Dysuria, Discharge, Frequency, Hematuria, Incontinence, Urgency Musculoskeletal: No: Symptoms Reported Neurological: No: Symptoms reported All Other Systems: Reviewed and Negative *Physical Exam - Vital Signs Last Vital Signs Temp Pulse Resp BP Pulse Ox 98.5 F 77 16 102/63 100 03/12/19 10:05 03/12/19 10:05 03/12/19 10:05 03/12/19 10:05 03/12/19 10:05 - Physical Exam General Appearance: Yes: Nourished, Appropriately Dressed. No: Apparent Distress HEENT: positive: Normal ENT Inspection Neck: positive: Supple Respiratory/Chest: positive: Lungs Clear, Normal Breath Sounds. negative: Respiratory Distress, Accessory Muscle Use Cardiovascular: positive: Regular Rhythm, Regular Rate Female Pelvic Exam: positive: normal external exam, cervical os closed, normal adnexa. negative: CMT, vaginal bleeding Gastrointestinal/Abdominal: positive: Normal Bowel Sounds, Tender (mild TTP to deep palpation of periumbilical area). negative: Distended, Guarding, Rebound, Hernia, Mass Musculoskeletal: positive: Normal Inspection. negative: CVA Tenderness Extremity: positive: Normal Capillary Refill, Normal Inspection, Normal Range of Motion Integumentary: positive: Normal Color Neurologic: positive: Fully Oriented, Alert, Normal Mood/Affect, Normal Response ED Treatment Course - ADDITIONAL ORDERS Additional order review: Laboratory Results 03/12/19 10:20 Urine HCG, Qual Positive Medical Decision Making - Medical Decision Making 03/12/19 11:06 Patient with no significant past medical history LMP January 31 present with complaint of three-day history of intermittent abdominal cramping pain. Patient reported taking Plan B pill 2 months ago after unprotective sex. Patient denies vaginal bleeding, discharge, urinary frequency or dysuria, fever or chills. Denies abdominal pain now. Patient did not do any home test. Denies any other symptoms Time significant for mild tenderness to periumbilical area on deep palpation without guarding or rebound. No vaginal discharge or bleeding. No CVA tenderness. No cervical motion tenderness and Urine hCG positive. Patient be workup to rule out ectopic . CBC, hCG, type and screen labs ordered. Transvaginal ultrasound ordered. Treat based on lab and imaging results 03/12/19 13:51 beta hcg 1500. transvaginal u/s shows pos GS with MSD c/w 5.0wks GA. no pole of YS. no adnexal mass. Results discussed with on-call ENVIRONMENTAL PLANNING ENGINEER Dr. Coppola who advise for patient to follow-up in 1 week in clinic for repeat beta hcg and U/ S. Plan discussed with patient who agrees to plan and follow-up. Strict follow- up instructions and bleeding precautions given to patient. Patient stable for discharge *DC/Admit/Observation/Transfer Diagnosis at time of Disposition: Early stage of - Discharge Dispostion Disposition: HOME Condition at time of disposition: Stable Decision to Admit order: No - Referrals Referrals: Andrés Coppola MD [Staff Physician] - - Patient Instructions Printed Discharge Instructions: Managing Symptoms of Additional Instructions: Your ultrasound shows early of 5 weeks. Follow-up in one week with your ENVIRONMENTAL PLANNING ENGINEER or referred ENVIRONMENTAL PLANNING ENGINEER for repeat ultrasound and blood work, to emergency room if vaginal bleeding or severe abdominal pains - Post Discharge Activity
[2019-03-12 11:09] LABS: HYALINE CASTS 10 /lpf (0-8); PH,URINE 5.5 (5.0-8.0); URINE APPEARANCE CLEAR; URINE BACTERIA 144.8 /hpf (NEGATIVE); URINE BILIRUBIN NEGATIVE (NEGATIVE); URINE COLOR YELLOW; URINE GLUCOSE (UA) NEGATIVE (NEGATIVE); URINE KETONE TRACE (NEGATIVE); URINE LEUK ESTERASE TRACE (NEGATIVE); URINE NITRITE NEGATIVE (NEGATIVE); URINE PROTEIN NEGATIVE (NEGATIVE); URINE RBC 2 /hpf (0-4); URINE UROBILINOGEN 0.2 mg/dL (0.2-1.0); URINE WBC 5 /hpf (0-5)
== END 2019-03-12 13:48 | disposition home or self-care (01) ==
LOC: JERFT 10:03
DX: O26.891 Other specified pregnancy related conditions, first trimester (principal); R10.30 Lower abdominal pain, unspecified; Z3A.01 Less than 8 weeks gestation of pregnancy
CPT/HCPCS: 36415; 76817-TC; 81003; 84702; 84703; 86850; 86900; 86901; 87086; 99282-25

== ENCOUNTER 2019-08-30 14:30 | Emergency (ER) | payer OTHER ==
[2019-08-30 14:53] VITALS: BP 115/79; PULSE 100; TEMP 97.9; BMI 19.7
--- NOTE | 2019-08-30 14:53 | PDOC ---
Rapid Medical Evaluation Time Seen by Provider: 08/30/19 14:50 Medical Evaluation: Allergies Allergy/AdvReac Type Severity Reaction Status Date / Time No Known Allergies Allergy Verified 08/30/19 14:50 08/30/19 14:51 I performed a brief in-person evaluation of this patient. 28-year-old female with one week of "rash" to lips. Wants Valtrex. Pertinent physical exam findings Slight erythema/excoriation upper and lower lips I have ordered the following: None Patient to proceed to FT for further evaluation. Discharge Disposition - Diagnosis Sore lips - Referrals - Patient Instructions - Post Discharge Activity
--- NOTE | 2019-08-30 15:44 | PDOC ---
History of Present Illness - General Chief Complaint: Rash Stated Complaint: RASH Time Seen by Provider: 08/30/19 14:50 History Source: Patient Exam Limitations: No Limitations Past History - Past Medical History Allergies/Adverse Reactions: Allergies Allergy/AdvReac Type Severity Reaction Status Date / Time No Known Allergies Allergy Verified 08/30/19 14:50 Home Medications: Ambulatory Orders Docosanol 1 applic TP BID PRN #1 tube 02/24/19 Valacyclovir HCl [Valtrex -] 500 mg PO BID 5 Days #10 tablet 02/24/19 Asthma: No Cancer: No Cardiac Disorders: No COPD: No Diabetes: No HTN: No Seizures: No Thyroid Disease: No - Immunization History Immunization Up to Date: Yes - Psycho Social/Smoking Cessation Hx Smoking History: Never smoked Have you smoked in the past 12 months: No Hx Alcohol Use: No Drug/Substance Use Hx: No Hx Substance Use Treatment: No *Physical Exam - Vital Signs Last Vital Signs Temp Pulse Resp BP Pulse Ox 97.9 F 100 H 18 115/79 100 08/30/19 14:51 08/30/19 14:51 08/30/19 14:51 08/30/19 14:51 08/30/19 14:51 - Physical Exam General Appearance: No: Apparent Distress HEENT: positive: Other (slight redness, flat along upper and lower lips, no sores, no open wounds, no drainage) Integumentary: positive: Normal Color Neurologic: positive: Alert Medical Decision Making - Medical Decision Making 28 y/o F with no sig pmh presents with c/o rash to B/L lips x 1-2 weeks. Has been using Abreva which initially helped a little, but has not gone away completely. Denies fever, sob, cp, abd pain, n/v, other complaints. States site is not itchy or painful "Rash" hardly noticeable Does not appear as cold sore Advised to f/u with PCP for further eval 08/30/19 15:40 Discharge - Discharge Information Problems reviewed: Yes Clinical Impression/Diagnosis: Sore lips Condition: Stable Disposition: HOME - Admission No - Additional Discharge Information Prescription Drug Monitoring Program (I-STOP) results: I-STOP not reviewed - Follow up/Referral - Patient Discharge Instructions Patient Printed Discharge Instructions: DI for Cold Sores - Post Discharge Activity
== END 2019-08-30 15:55 | disposition home or self-care (01) ==
LOC: JERFT 14:30
DX: B00.1 Herpesviral vesicular dermatitis (principal)
CPT/HCPCS: 99281-25

== ENCOUNTER 2022-10-28 09:24 | Emergency (ER) | payer OTHER ==
[2022-10-28 09:47] VITALS: BP 121/74; PULSE 84; RESP 16; TEMP 97.4; BMI 25.2
[2022-10-28 11:40] LABS: EPI CELLS >36 /uL (0-25.1); HYALINE CASTS 1 /uL (0-3.1); URINE APPEARANCE CLOUDY; URINE BACTERIA 32 /uL (0-1359); URINE BILIRUBIN NEGATIVE (NEGATIVE); URINE COLOR YELLOW; URINE GLUCOSE (UA) NEGATIVE (NEGATIVE); URINE KETONE NEGATIVE (NEGATIVE); URINE LEUK ESTERASE 2+ (NEGATIVE); URINE NITRITE NEGATIVE (NEGATIVE); URINE PROTEIN NEGATIVE (NEGATIVE); URINE UROBILINOGEN 0.2 mg/dL (0.2-1.0); URINE WBC 419 /uL (0-25.8)
[2022-10-28 12:10] LABS: URINE RBC 283.3 /uL (0-23.9)
== END 2022-10-28 12:30 | disposition home or self-care (01) ==
LOC: JERFT 09:24
DX: N30.00 Acute cystitis without hematuria (principal)
CPT/HCPCS: 81003; 84703; 87077; 87086; 99283-25